=== PATIENT | male | born 1985 | race African-American/Black ===

== ENCOUNTER 2017-05-21 11:18 | Emergency (ER) | payer MEDICAID ==
[~2017-05-21] VITALS: Ht 182.9 cm; Wt 72.6 kg
[2017-05-21 11:31] VITALS: BP 143/80
[2017-05-21] MEDS ORDERED: cefTRIAXone SOD 1,000 MG VL IM ONE (12:15)
[2017-05-21] MEDS ORDERED: LIDOCAINE 1% HCL (LOCAL ANESTH.) INJ 20ML MDV IJ ONE (12:15)
== END 2017-05-21 12:48 | disposition home or self-care (01) ==
LOC: ER 11:18
DX: K04.7 Periapical abscess without sinus (principal); F17.210 Nicotine dependence, cigarettes, uncomplicated; Z20.2 Contact with and (suspected) exposure to infections with a predominantly sexual mode of transmission
CPT/HCPCS: 96372; 96374; 99284; J0696; J2001